=== PATIENT | male | born 1990 | race Caucasian/White ===

== ENCOUNTER 2016-09-28 12:22 | Inpatient (IN) | payer MEDICAID ==
[~2016-09-28] VITALS: Ht 195.6 cm; Wt 73.2 kg
[~2016-09-28 12:22] MED LIST: CIPRO500 MG OR; HUMALOG100 MG/ML; HUMALOG100 MG/ML SC; HUMULIN R1 M1 SC; INSULIN PUMP; KEFLEX500 M1 PO; LANTUS100 MG/ML SC; LORTAB 5 OR; LORTAB 7.5-3251 TAB PO; LYRICA75 MG PO; MEDDOSEPAK PO
[2016-09-28 13:00] LABS: HEMATOCRIT 36.4 % (39.0-50.0); HEMOGLOBIN 12.7 g/dl (14.0-18.0); IMMATURE GRANULOCYTES 0.2 % (0.0-1.0); MEAN CELL VOLUME 85.2 fL CALC (80.0-100.0); MEAN CORPUSCULAR HGB 29.7 pG CALC (26.0-32.0); MEAN CORPUSCULAR HGB CONC 34.9 g/L CALC (32.0-36.0); NEUT# 3.51 thou/uL (1.82-7.42); RED BLOOD COUNT 4.27 mill/uL (4.70-6.10); RED CELL DISTRI WIDTH 13.5 % (11.5-15.5)
[2016-09-28 13:21] LABS: ALKALINE PHOSPHATASE 127 u/l (38-126); ANION GAP 21 (6-22 (CALC)); BUN 15 mg/dL (9-20); BUN/CREATININE RATIO 10 (12-20 (CALC)); CALCIUM 10.1 mg/dL (8.4-10.2); CARBON DIOXIDE 20 mmol/l (22-30); CHLORIDE 103 mmol/l (95-108); CREATININE 1.6 mg/dL (0.7-1.3); GFR 53 ML/MIN (>=60 (CALC)); GFR FOR AFR.AMER. > 60 ML/MIN (>=60 (CALC)); SGOT/AST 17 u/l (17-59); SGPT/ALT 27 u/l (21-72); SODIUM 139 mmol/l (137-146); TOTAL PROTEIN 8.8 g/dL (6.3-8.2)
[2016-09-28 13:26] LABS: GLUCOSE 484 mg/dL (75-110)
[2016-09-28 15:07] LABS: URINE BILIRUBIN - DIPSTICK NEGATIVE (NEGATIVE); URINE BLOOD DIPSTICK TRACE-INTACT (NEGATIVE); URINE CLARITY CLEAR; URINE COLOR YELLOW; URINE GLUCOSE - DIPSTICK >=1000 mg/dL (NEGATIVE); URINE KETONE NEGATIVE (NEGATIVE); URINE LEUK ESTERASE NEGATIVE (NEGATIVE); URINE NITRITE - DIPSTICK NEGATIVE (Negative); URINE PROTEIN - DIPSTICK NEGATIVE (NEG-TRACE); URINE UROBILINOGEN - DIPSTICK 0.2 E.U./dL (0.2)
[2016-09-28 15:10] LABS: BARBITURATES NEGATIVE (NEGATIVE); COCAINE NEGATIVE (NEGATIVE); METHADONE NEGATIVE (NEGATIVE); TETRAHYDROCANNABIONOL NEGATIVE (NEGATIVE); TRICYLIC ANTIDEPRESSANTS NEGATIVE (NEGATIVE)
[2016-09-28 15:11] LABS: OXCYCODONE NEGATIVE (NEGATIVE)
[2016-09-28 18:00] VITALS: BP 130/88
[2016-09-28 20:10] VITALS: BP 154/95
[2016-09-29 00:40] VITALS: BP 135/85
[2016-09-29 05:33] VITALS: BP 132/89
[2016-09-29 06:04] LABS: HEMATOCRIT 32.3 % (39.0-50.0); HEMOGLOBIN 11.1 g/dl (14.0-18.0); MEAN CELL VOLUME 87.3 fL CALC (80.0-100.0); MEAN CORPUSCULAR HGB CONC 34.4 g/L CALC (32.0-36.0); RED BLOOD COUNT 3.7 mill/uL (4.70-6.10); RED CELL DISTRI WIDTH 13.6 % (11.5-15.5)
[2016-09-29 06:25] LABS: CALCIUM 8.8 mg/dL (8.4-10.2); CREATININE 2.5 mg/dL (0.7-1.3); POTASSIUM 4.2 mmol/l (3.5-5.1)
[2016-09-29 07:50] VITALS: BP 133/81
[2016-09-29 11:05] VITALS: BP 141/82
[2016-09-29 15:56] VITALS: BP 145/90
[2016-09-29 22:51] VITALS: BP 137/86
[2016-09-30] VITALS (9 sets, daily range): BP systolic 115–176; BP diastolic 65–97
[2016-09-30 06:34] LABS: HEMATOCRIT 31.2 % (39.0-50.0); HEMOGLOBIN 10.5 g/dl (14.0-18.0); IMMATURE GRANULOCYTES 0.6 % (0.0-1.0); MEAN CELL VOLUME 88.1 fL CALC (80.0-100.0); MEAN CORPUSCULAR HGB 29.7 pG CALC (26.0-32.0); MEAN CORPUSCULAR HGB CONC 33.7 g/L CALC (32.0-36.0); NEUT# 10.34 thou/uL (1.82-7.42); RED BLOOD COUNT 3.54 mill/uL (4.70-6.10)
[2016-09-30 06:55] LABS: CALCIUM 8.5 mg/dL (8.4-10.2); CREATININE 3.7 mg/dL (0.7-1.3); MAGNESIUM 1.4 mg/dL (1.6-2.3); POTASSIUM 4.2 mmol/l (3.5-5.1)
[2016-10-01] VITALS (7 sets, daily range): BP systolic 110–158; BP diastolic 68–103
[2016-10-01 06:00] LABS: HEMATOCRIT 29.6 % (39.0-50.0); HEMOGLOBIN 9.6 g/dl (14.0-18.0); MEAN CELL VOLUME 90.8 fL CALC (80.0-100.0); MEAN CORPUSCULAR HGB 29.4 pG CALC (26.0-32.0); MEAN CORPUSCULAR HGB CONC 32.4 g/L CALC (32.0-36.0); RED BLOOD COUNT 3.26 mill/uL (4.70-6.10); RED CELL DISTRI WIDTH 14.4 % (11.5-15.5)
[2016-10-01 06:26] LABS: CALCIUM 8.3 mg/dL (8.4-10.2); CREATININE 2.5 mg/dL (0.7-1.3); MAGNESIUM 2.1 mg/dL (1.6-2.3); POTASSIUM 4.3 mmol/l (3.5-5.1)
[2016-10-01] MEDS ORDERED: LANTUS100 UNIT/M SC (17:52)
== END 2016-10-01 18:00 | disposition left against medical advice (07) | DRG 872 ==
LOC: ED 12:22 → ED-I 15:29 → ED 15:51 → MS2 15:52 → ICU 09-30 10:15
PROVIDERS: Emergency Medicine; Nurse Practitioner Family; ADMIT Internal Medicine; ATTEND Internal Medicine
PROC: 0T778DZ Dilation of Left Ureter with Intraluminal Device, Via Natural or Artificial Opening Endoscopic (ICD-10-PCS; principal; 2016-09-29)
PROC: 0TB78ZX Excision of Left Ureter, Via Natural or Artificial Opening Endoscopic, Diagnostic (ICD-10-PCS; 2016-09-29)
PROC: BT1F1ZZ Fluoroscopy of Left Kidney, Ureter and Bladder using Low Osmolar Contrast (ICD-10-PCS; 2016-09-29)
DX: A41.9 Sepsis, unspecified organism (principal); E87.2 Acidosis; N17.9 Acute kidney failure, unspecified; B49 Unspecified mycosis; E10.22 Type 1 diabetes mellitus with diabetic chronic kidney disease; N18.3 Chronic kidney disease, stage 3 (moderate); N13.6 Pyonephrosis; R65.20 Severe sepsis without septic shock; E10.65 Type 1 diabetes mellitus with hyperglycemia; A63.0 Anogenital (venereal) warts; D63.8 Anemia in other chronic diseases classified elsewhere; E86.0 Dehydration; Z79.4 Long term (current) use of insulin; Z87.442 Personal history of urinary calculi
CPT/HCPCS: J0692; Q9967

== ENCOUNTER 2017-01-04 10:07 | Observation (INO) | payer MEDICAID ==
[~2017-01-04] VITALS: Ht 182.9 cm; Wt 72.6 kg
[~2017-01-04 10:07] MED LIST changes: +LANTUS100 UNIT/M SC
--- NOTE | 2017-01-04 10:25 | NUR ---
WHEELCHAIR TO ER ROOM 15, TOBED
[2017-01-04 10:37] LABS: HEMATOCRIT 35.4 % (39.0-50.0); HEMOGLOBIN 13.1 g/dl (14.0-18.0); IMMATURE GRANULOCYTES 0.3 % (0.0-1.0); MEAN CELL VOLUME 82.3 fL CALC (80.0-100.0); MEAN CORPUSCULAR HGB 30.5 pG CALC (26.0-32.0); NEUT# 5.66 thou/uL (1.82-7.42); RED BLOOD COUNT 4.3 mill/uL (4.70-6.10); RED CELL DISTRI WIDTH 12.3 % (11.5-15.5)
[2017-01-04 10:58] LABS: ALBUMIN 4.7 g/dL (3.2-5.0); ALKALINE PHOSPHATASE 120 u/l (38-126); AMYLASE < 30 u/l (30-110); ANION GAP 22 (6-22 (CALC)); BILIRUBIN, TOTAL 0.6 mg/dL (0.0-1.4); BUN 23 mg/dL (9-20); BUN/CREATININE RATIO 17 (12-20 (CALC)); CALCIUM 9.6 mg/dL (8.4-10.2); CARBON DIOXIDE 22 mmol/l (22-30); CHLORIDE 104 mmol/l (95-108); CREATININE 1.4 mg/dL (0.7-1.3); GFR > 60 ML/MIN (>=60 (CALC)); GFR FOR AFR.AMER. > 60 ML/MIN (>=60 (CALC)); GLUCOSE 137 mg/dL (75-110); LIPASE 31 u/l (23-300); POTASSIUM 3.8 mmol/l (3.5-5.1); SGOT/AST 24 u/l (17-59); SGPT/ALT 32 u/l (21-72); SODIUM 144 mmol/l (137-146); TOTAL PROTEIN 8.7 g/dL (6.3-8.2)
--- NOTE | 2017-01-04 11:05 | NUR ---
PT REMAINS ACTIVELY RETCHING, NO VOMIT COMING UP. MOANING. NOTIFIED THAT MORPHINE WAS NOT WORKING NO NEW ORDERS GIVEN
[2017-01-04 11:09] LABS: MYOGLOBIN 22 ng/mL (0 - 121)
--- NOTE | 2017-01-04 11:54 | NUR ---
0.5 MG OF DILAUDID GIVEN PER ORDER. PT STILL STATES SEVERE PAIN, ALTHOUGH HIS EYES ARE CLOSED AND HE KEEPS DOZING OFF. VITAL SIGNS REMAIN STABLE. NO VOMITING AT THIS TIME
[2017-01-04 12:06] LABS: URINE BILIRUBIN - DIPSTICK NEGATIVE (NEGATIVE); URINE BLOOD DIPSTICK NEGATIVE (NEGATIVE); URINE COLOR YELLOW; URINE GLUCOSE - DIPSTICK >=1000 mg/dL (NEGATIVE); URINE KETONE NEGATIVE (NEGATIVE); URINE LEUK ESTERASE NEGATIVE (NEGATIVE); URINE NITRITE - DIPSTICK NEGATIVE (Negative); URINE PROTEIN - DIPSTICK NEGATIVE (NEG-TRACE); URINE UROBILINOGEN - DIPSTICK 0.2 E.U./dL (0.2)
[2017-01-04 12:07] LABS: URINE CLARITY CLEAR
--- NOTE | 2017-01-04 12:56 | NUR ---
PT RESTING AT THIS TIME. FRIEND IN ROOM AT BEDSIDE. NO VOMITING AT THIS TIME
--- NOTE | 2017-01-04 13:57 | NUR ---
PT IS STATING THAT PAIN IS INCREASING, NO NEW ORDERS GIVEN. CONTINUES TO RETCH LIMITED VOMIT. PT ROLLING AROUND IN BED.
[2017-01-04] MEDS ORDERED: NOVOLOG100 UNIT/M IJ (14:03)
[2017-01-04] MEDS ORDERED: LANTUS100 UNIT/M IJ (14:05)
--- NOTE | 2017-01-04 14:16 | NUR ---
NURSE UNAVAILABLE TO GIVE REPORT, SHE WILL CALL BACK WHEN SHE CAN
--- NOTE | 2017-01-04 14:47 | NUR ---
PT REPORT CALLED BY CHARLES TO NURSE AND PT TAKEN TO FLOOR
[2017-01-04 14:50] VITALS: BP 160/83
--- NOTE | 2017-01-04 16:41 | NUR ---
REPORT RECEIVED FROM CHARLES IN ED, PT ARRIVED ON UNIT @ 1444 VIA STRETCHER AND ASSISTED TO BED, GROGGY, STARTED WRITHING IN PAIN TO REPORTED LUQ @ 10/10 REPORTED. UNABLE TO DO ASSESSMENT AT THAT TIME DUE TO PT'S CONDITION. IV CATHETER DISLODGED DUE TO PT'S RESTLESNESS AND THRASHING AROUND. ALL NEEDS ADDRESSED AND PT CALMED DOWN AT THIS TIME, WILL CONTINUE TO MONITOR.
--- NOTE | 2017-01-04 18:29 | NUR ---
OR STAFF HERE AT THIS TIME RECEIVING PT AND TRANSPORTING HIM TO OR.
--- NOTE | 2017-01-04 19:45 | NUR ---
REPORT RECEIVED FROM KUSH. FAYE. PT OFF UNIT AT THIS TIME PREPPING FOR CYSTOSCOPY AND LEFT STENT PLACEMENT BY DR. ALONSO. FAMILY IN ROOM.
[2017-01-04 20:31] LABS: COCAINE NEGATIVE (NEGATIVE); METHADONE NEGATIVE (NEGATIVE); TETRAHYDROCANNABIONOL POSITIVE (NEGATIVE)
[2017-01-04 20:32] LABS: BARBITURATES NEGATIVE (NEGATIVE); OXCYCODONE NEGATIVE (NEGATIVE); TRICYLIC ANTIDEPRESSANTS NEGATIVE (NEGATIVE)
--- NOTE | 2017-01-04 20:45 | NUR ---
UPDATED BY OR NURSE; DR. ALONSO TO ARRIVE WITHIN THE HOUR TO PERFORM PROCEDURE.
[2017-01-04 22:35] VITALS: BP 142/62
--- NOTE | 2017-01-04 22:40 | NUR ---
PT ARRIVED TO UNIT AT 2240 VIA STRETCHER WITH OR STAFF. PT ABLE TO REPOSITION SELF FROM STRETCHER TO BED WITHOUT ASSIST. PT ALERT AND ORIENTED. PT SHAKING AND C/O SEVERE PENILE PAIN. RESPIRATIONS EVEN AND UNLABORED. SCD'S IN PLACE. IV FLUIDS INFUSING WITHOUT DIFFICULTY. FAMILY AT BEDSIDE. CALL LIGHT SYSTEM REVIEWED AND IN REACH.
[2017-01-04 22:50] VITALS: BP 111/59
[2017-01-04 23:05] VITALS: BP 111/61
[2017-01-04 23:20] VITALS: BP 110/71
[2017-01-04 23:50] VITALS: BP 107/67
[2017-01-05 00:20] VITALS: BP 111/65
--- NOTE | 2017-01-05 02:47 | NUR ---
PT FINGER STICK BLOOD SUGAR AT 0045 WAS 52. ORANGE JUICE GIVEN WITH FOLLOW UP BP OF 58. DR. GAO NOTIFIED AND NEW ORDER FOR ONE AMP OF D50 X 1NOW; GIVEN. FOLLOW UP BLOOD SUGAR AFTER D50 WAS 169. PT ASYMPTOMATIC. SITTING UP IN BED PLAYING ON CELL PHONE. ONLY REQUEST AT THIS TIME WAS PAIN MEDICATION FOR GROIN PAIN 08/15 TO HELP HIM GET SOME SLEEP. DENIES NAUSEA. RESPIRATIONS EVEN AND UNLABORED. NO VOID YET. PT INSTRUCTED TO NOTIFY NURSE FOR ANY CHANGE OR WORSENING IN CONDITION. STATES UNDERSTANDING. CALL LIGHT WITHIN REACH.
--- NOTE | 2017-01-05 04:13 | NUR ---
PT ASLEEP AT THIS TIME. NO SIGNS OF DISTRESS NOTED. RESPIRATIONS EVEN AND UNLABORED. ALL POST OP VITALS STABLE. CALL LIGHT WITHIN REACH.
[2017-01-05 04:40] VITALS: BP 124/75
[2017-01-05 06:16] LABS: HEMATOCRIT 29.4 % (39.0-50.0); MEAN CELL VOLUME 83.1 fL CALC (80.0-100.0); MEAN CORPUSCULAR HGB 28.2 pG CALC (26.0-32.0); RED BLOOD COUNT 3.54 mill/uL (4.70-6.10); RED CELL DISTRI WIDTH 12.8 % (11.5-15.5)
[2017-01-05 06:32] LABS: CALCIUM 8.6 mg/dL (8.4-10.2); CREATININE 1.7 mg/dL (0.7-1.3); POTASSIUM 3.7 mmol/l (3.5-5.1)
--- NOTE | 2017-01-05 06:45 | NUR ---
ARRIVED IN PT ROOM WITH NURSE. PT WAS SHAKING IN BED. NURSE HELP TO GET PT TO URINATE. PT'S BLOOD SUGAR WAS ALSO CHECKED AT THIS TIME, IT WAS 36. NURSE GAVE MEDICATION. I GAVE ONE ORANGE JUICE WITH 3 REGULAR SUGARS. NURSE ALSO GAVE 2 MORE ORANGE JUICES. PT WAS INSTRUCTED TO DRINK ALL 3. PT WAS ABLE TO DRINK 1 ORANGE JUICE. RECHECK SUGAR WAS AT 0710 IT WAS 142. WILL RECHECK AT 0810.
--- NOTE | 2017-01-05 07:00 | NUR ---
RECEIVED BEDSIDE REPORT FROM MOI SCHAEFER. RESTING IN BED WITH EYES CLOSED, AWAKENS EASILY. RESPS EVEN AND UNLABORED ON ROOM AIR. REPEAT ACCUCHECK 142. DENIES PAIN OR DISCOMFORT. #20 RFA INFUSING WITHOUT DIFFICULTY, SITE APPEARS HEALTHY. SCD'S TO BILAT LOWER EXTREMITIES. PLAN OF CARE DISCUSSED. SAFETY PRECAUTIONS REINFORCED. BED IN LOWEST POSITON WITH WHEELS LOCKED. CALL LIGHT WITHIN REACH. ENCOURAGED PT TO CALL FOR ANY NEEDS.
[2017-01-05 07:30] VITALS: BP 140/82
--- NOTE | 2017-01-05 10:05 | NUR ---
RESTING IN BED WITH EYES CLOSED, AWAKENS EASILY. RESPS EVEN AND UNLABORED ON ROOM AIR. #20 RFA INFUSING WITHOUT DIFFICULTY, SITE APPEARS HEALTHY. SCD'S TO BILAT LOWER EXTREMITIES. MEDICATED WITH LORTAB PO FOR C/O 8/10 PELVIC/SCROTAL PAIN. ENCOURAGED PT TO DRINK PO FLUIDS. CALL LIGHT WITHIN REACH. ENCOURAGED PT TO CALL FOR ANY NEEDS.
[2017-01-05] MEDS ORDERED: HUMALOG KW100 UNIT/M (10:45)
[2017-01-05] MEDS ORDERED: LISINOPRIL20 M1 PO (10:50)
--- NOTE | 2017-01-05 13:35 | NUR ---
PT LEFT AMA. DR HAYES AND MAL [facility] NOTIFIED. #20 RFA REMOVED, CATH TIP INTACT. SITE APPEARS HEALTHY. NO BLEEDING NOTED AT [facility]. TOLERATED WITHOUT DIFFICULTY.
== END 2017-01-05 13:35 | disposition left against medical advice (07) | DRG 694 ==
LOC: ED 10:07 → ED-I 13:11 → ED 13:57 → MS2 13:58
PROVIDERS: Emergency Medicine; Internal Medicine; ADMIT Internal Medicine; ATTEND Internal Medicine
PROC: 0T778DZ Dilation of Left Ureter with Intraluminal Device, Via Natural or Artificial Opening Endoscopic (ICD-10-PCS; principal; 2017-01-04)
PROC: BT1FZZZ Fluoroscopy of Left Kidney, Ureter and Bladder (ICD-10-PCS; 2017-01-04)
DX: N13.30 Unspecified hydronephrosis (principal); N17.9 Acute kidney failure, unspecified; E10.22 Type 1 diabetes mellitus with diabetic chronic kidney disease; N28.89 Other specified disorders of kidney and ureter; N18.9 Chronic kidney disease, unspecified; D64.9 Anemia, unspecified; Z79.4 Long term (current) use of insulin; Z87.442 Personal history of urinary calculi; Z91.19 Patient's noncompliance with other medical treatment and regimen; Z21 Asymptomatic human immunodeficiency virus [HIV] infection status
CPT/HCPCS: G0378; J0692; Q9967

== ENCOUNTER 2017-01-09 10:33 | Emergency (ER) | payer OTHER, MEDICAID ==
[~2017-01-09] VITALS: Ht 182.9 cm; Wt 65.0 kg
[~2017-01-09 10:33] MED LIST changes: +HUMALOG KW100 UNIT/M; +LANTUS100 UNIT/M IJ; +LISINOPRIL20 M1 PO; +NOVOLOG100 UNIT/M IJ
[2017-01-09] MEDS ORDERED: LORTAB 5/3255 MG PO (11:43)
[2017-01-09] MEDS ORDERED: MOTRIN800 MG PO (11:43)
[2017-01-09] MEDS ORDERED: FLEXERIL PO (11:43)
[2017-01-09 11:48] VITALS: BP 122/81
== END 2017-01-09 11:53 | disposition home or self-care (01) | DRG 552 ==
LOC: ED 10:33
DX: S16.1XXA Strain of muscle, fascia and tendon at neck level, initial encounter (principal); V43.52XA Car driver injured in collision with other type car in traffic accident, initial encounter; Y92.414 Local residential or business street as the place of occurrence of the external cause; Y93.I9 Activity, other involving external motion

== ENCOUNTER 2017-02-01 13:46 | Emergency (ER) | payer MEDICAID ==
[~2017-02-01] VITALS: Ht 182.9 cm; Wt 69.0 kg
[~2017-02-01 13:46] MED LIST changes: +FLEXERIL PO; +LORTAB 5/3255 MG PO; +MOTRIN800 MG PO
[2017-02-01] MEDS ORDERED: FLUCONAZOLE200 MG PO (14:00)
[2017-02-01 14:27] LABS: HEMATOCRIT 37.7 % (39.0-50.0); IMMATURE GRANULOCYTES 0.4 % (0.0-1.0); MEAN CELL VOLUME 80.7 fL CALC (80.0-100.0); MEAN CORPUSCULAR HGB 27.8 pG CALC (26.0-32.0); MEAN CORPUSCULAR HGB CONC 34.5 g/L CALC (32.0-36.0); NEUT# 3.69 thou/uL (1.82-7.42); RED BLOOD COUNT 4.67 mill/uL (4.70-6.10); RED CELL DISTRI WIDTH 12.6 % (11.5-15.5)
[2017-02-01 14:54] LABS: ALBUMIN 5.1 g/dL (3.2-5.0); BILIRUBIN, TOTAL 0.6 mg/dL (0.0-1.4); CALCIUM 11.2 mg/dL (8.4-10.2); CREATININE 1.8 mg/dL (0.7-1.3); POTASSIUM 4.5 mmol/l (3.5-5.1); TOTAL PROTEIN 8.8 g/dL (6.3-8.2)
[2017-02-01] MEDS ORDERED: MOTRIN800 MG PO (17:25)
[2017-02-01 17:26] VITALS: BP 130/61
[2017-02-01 17:27] LABS: URINE BILIRUBIN - DIPSTICK NEGATIVE (NEGATIVE); URINE BLOOD DIPSTICK LARGE (NEGATIVE); URINE COLOR YELLOW; URINE GLUCOSE - DIPSTICK >=1000 mg/dL (NEGATIVE); URINE KETONE NEGATIVE (NEGATIVE); URINE NITRITE - DIPSTICK NEGATIVE (Negative); URINE PH 7.5 (4.5-8.0); URINE PROTEIN - DIPSTICK 30 mg/dL (NEG-TRACE); URINE UROBILINOGEN - DIPSTICK 0.2 E.U./dL (0.2)
[2017-02-01 17:33] LABS: URINE CLARITY SL CLOUDY; URINE LEUK ESTERASE SMALL (NEGATIVE)
[2017-02-01 17:36] LABS: URINE RBC 25-50 RBC/hpf (0-5)
[2017-02-01 17:37] LABS: URINE YEAST MANY hpf
== END 2017-02-01 17:38 | disposition home or self-care (01) | DRG 93 ==
LOC: ED 13:46
PROVIDERS: Emergency Medicine
DX: G89.29 Other chronic pain (principal); R10.32 Left lower quadrant pain; R11.2 Nausea with vomiting, unspecified; Z96.0 Presence of urogenital implants

== ENCOUNTER 2017-03-05 18:02 | Emergency (ER) | payer MEDICAID ==
[~2017-03-05] VITALS: Ht 182.9 cm; Wt 70.0 kg
[~2017-03-05 18:02] MED LIST changes: +FLUCONAZOLE200 MG PO; +HUMALOG100 UNIT/M SC; +LEVEMIR100 UNIT/M SC
[2017-03-05 19:35] LABS: ALBUMIN 4.3 g/dL (3.2-5.0); ALKALINE PHOSPHATASE 103 u/l (38-126); AMYLASE < 30 u/l (30-110); ANION GAP 23 (6-22 (CALC)); BILIRUBIN, TOTAL 0.8 mg/dL (0.0-1.4); BUN 21 mg/dL (9-20); BUN/CREATININE RATIO 16 (12-20 (CALC)); CALCIUM 9.9 mg/dL (8.4-10.2); CARBON DIOXIDE 23 mmol/l (22-30); CHLORIDE 95 mmol/l (95-108); CREATININE 1.3 mg/dL (0.7-1.3); GFR > 60 ML/MIN (>=60 (CALC)); GFR FOR AFR.AMER. > 60 ML/MIN (>=60 (CALC)); LIPASE < 10 u/l (23-300); POTASSIUM 4.7 mmol/l (3.5-5.1); SGOT/AST 21 u/l (17-59); SGPT/ALT 29 u/l (21-72); SODIUM 136 mmol/l (137-146); TOTAL PROTEIN 7.3 g/dL (6.3-8.2)
[2017-03-05 19:48] LABS: GLUCOSE 648 mg/dL (75-110)
[2017-03-05 19:56] LABS: HEMATOCRIT 33.4 % (39.0-50.0); HEMOGLOBIN 11.2 g/dl (14.0-18.0); MANUAL DIFFERENTIAL YES; MEAN CELL VOLUME 81.5 fL CALC (80.0-100.0); MEAN CORPUSCULAR HGB 27.3 pG CALC (26.0-32.0); MEAN CORPUSCULAR HGB CONC 33.5 g/L CALC (32.0-36.0); PLATELET COUNT 182 thou/uL (130-400); RED CELL DISTRI WIDTH 12.3 % (11.5-15.5)
[2017-03-05] MEDS ORDERED: XANAX0.5 MG PO (20:04)
[2017-03-05 22:51] VITALS: BP 128/86
[2017-03-05 22:55] LABS: URINE BILIRUBIN - DIPSTICK NEGATIVE (NEGATIVE); URINE BLOOD DIPSTICK SMALL (NEGATIVE); URINE COLOR YELLOW; URINE GLUCOSE - DIPSTICK >=1000 mg/dL (NEGATIVE); URINE KETONE 15 mg/dL (NEGATIVE); URINE LEUK ESTERASE NEGATIVE (NEGATIVE); URINE NITRITE - DIPSTICK NEGATIVE (Negative); URINE PROTEIN - DIPSTICK NEGATIVE (NEG-TRACE); URINE SPECIFIC GRAVITY <=1.005; URINE UROBILINOGEN - DIPSTICK 0.2 E.U./dL (0.2)
[2017-03-05 23:08] LABS: URINE CLARITY CLEAR
[2017-03-05 23:11] LABS: URINE WBC 0-2 WBC/hpf (0-5); URINE YEAST MODERATE hpf
== END 2017-03-05 22:49 | disposition short-term general hospital (02) | DRG 976 ==
LOC: ED 18:02
PROVIDERS: Emergency Medicine
DX: B20 Human immunodeficiency virus [HIV] disease (principal); B37.0 Candidal stomatitis; D70.4 Cyclic neutropenia; E11.65 Type 2 diabetes mellitus with hyperglycemia; N13.9 Obstructive and reflux uropathy, unspecified; B00.9 Herpesviral infection, unspecified

== ENCOUNTER 2017-04-30 15:17 | Emergency (ER) | payer MEDICAID ==
[~2017-04-30] VITALS: Ht 182.9 cm; Wt 59.0 kg
[~2017-04-30 15:17] MED LIST changes: +XANAX0.5 MG PO
[2017-04-30 16:44] LABS: ALBUMIN 4.4 g/dL (3.2-5.0); BILIRUBIN, TOTAL 0.6 mg/dL (0.0-1.4); BUN 35 mg/dL (9-20); BUN/CREATININE RATIO 28 (12-20 (CALC)); CARBON DIOXIDE 21 mmol/l (22-30); CHLORIDE 103 mmol/l (95-108); CREATININE 1.3 mg/dL (0.7-1.3); GFR > 60 ML/MIN (>=60 (CALC)); GFR FOR AFR.AMER. > 60 ML/MIN (>=60 (CALC)); LIPASE < 10 u/l (23-300); POTASSIUM 4.4 mmol/l (3.5-5.1); SGOT/AST 27 u/l (17-59); SGPT/ALT 31 u/l (21-72); TOTAL PROTEIN 8.1 g/dL (6.3-8.2)
[2017-04-30 16:46] LABS: ALKALINE PHOSPHATASE 162 u/l (38-126); ANION GAP 25 (6-22 (CALC)); SODIUM 145 mmol/l (137-146)
[2017-04-30 16:48] LABS: BASO% 7 % (0-3); EOS% 12 % (0-8); HEMATOCRIT 31.9 % (39.0-50.0); HEMOGLOBIN 10.7 g/dl (14.0-18.0); LYMPH% 38 % (15-41); MEAN CELL VOLUME 84.6 fL CALC (80.0-100.0); MEAN CORPUSCULAR HGB 28.4 pG CALC (26.0-32.0); MEAN CORPUSCULAR HGB CONC 33.5 g/L CALC (32.0-36.0); MONO% 24 % (2-13); NEUT# 0.08 thou/uL (1.82-7.42); NEUT% 19 % (42-76); PLATELET COUNT 114 thou/uL (130-400); RED BLOOD COUNT 3.77 mill/uL (4.70-6.10); RED CELL DISTRI WIDTH 14.7 % (11.5-15.5)
[2017-04-30 16:50] LABS: MANUAL DIFFERENTIAL YES
[2017-04-30 16:56] LABS: ANISOCYTOSIS MODERATE
[2017-04-30 16:57] LABS: HYPOCHROMIA FEW
[2017-04-30 18:32] LABS: URINE BILIRUBIN - DIPSTICK NEGATIVE (NEGATIVE); URINE BLOOD DIPSTICK LARGE (NEGATIVE); URINE COLOR YELLOW; URINE GLUCOSE - DIPSTICK NEGATIVE (NEGATIVE); URINE KETONE NEGATIVE (NEGATIVE); URINE LEUK ESTERASE NEGATIVE (NEGATIVE); URINE NITRITE - DIPSTICK NEGATIVE (Negative); URINE PROTEIN - DIPSTICK 30 mg/dL (NEG-TRACE); URINE SPECIFIC GRAVITY <=1.005; URINE UROBILINOGEN - DIPSTICK 0.2 E.U./dL (0.2)
[2017-04-30 18:39] LABS: URINE CLARITY CLOUDY; URINE RBC TNTC RBC/hpf (0-5); URINE SQUAMOUS EPITHELIAL CELL FEW EPI/hpf (0-FEW)
[2017-04-30 18:41] LABS: URINE YEAST MODERATE hpf
[2017-04-30 21:12] VITALS: BP 121/77
== END 2017-04-30 21:14 | DRG 872 ==
LOC: ED 15:17
PROVIDERS: Family Medicine
DX: A41.01 Sepsis due to Methicillin susceptible Staphylococcus aureus (principal); R10.84 Generalized abdominal pain; R11.2 Nausea with vomiting, unspecified; R30.0 Dysuria; R50.9 Fever, unspecified
CPT/HCPCS: J0692; Q9967

== ENCOUNTER 2018-10-06 22:00 | Emergency (ER) | payer MEDICAID ==
[~2018-10-06] VITALS: Ht 182.9 cm; Wt 70.5 kg
[2018-10-06] MEDS ORDERED: JANUVIA25 MG PO (22:15)
[2018-10-06] MEDS ORDERED: TIZANIDINE HCL4 M1 PO (22:15)
[2018-10-06] MEDS ORDERED: BACTRIM DS1 TAB PO (23:12)
[2018-10-06 23:40] VITALS: BP 129/94
== END 2018-10-06 23:40 | disposition home or self-care (01) ==
LOC: ED 22:00
DX: L02.413 Cutaneous abscess of right upper limb (principal); L02.211 Cutaneous abscess of abdominal wall; Z21 Asymptomatic human immunodeficiency virus [HIV] infection status

== ENCOUNTER 2018-10-08 09:49 | Emergency (ER) | payer MEDICAID ==
[~2018-10-08] VITALS: Ht 182.9 cm; Wt 60.0 kg
[~2018-10-08 09:49] MED LIST changes: +BACTRIM DS1 TAB PO; +JANUVIA25 MG PO; +TIZANIDINE HCL4 M1 PO
[2018-10-08] MEDS ORDERED: GENVOYA 150-1501 TAB PO (10:23)
[2018-10-08] MEDS ORDERED: AUGMENTIN500TAB PO (10:30)
[2018-10-08 10:36] VITALS: BP 158/77
== END 2018-10-08 10:36 | disposition home or self-care (01) ==
LOC: ED 09:49
DX: Z48.01 Encounter for change or removal of surgical wound dressing (principal); J34.0 Abscess, furuncle and carbuncle of nose